=== PATIENT | male | born 1995 | race Caucasian/White ===

== ENCOUNTER 2018-06-27 16:32 | Emergency (ER) | payer MEDICAID ==
[~2018-06-27] VITALS: Ht 177.8 cm; Wt 109.3 kg
[2018-06-27 16:40] VITALS: BP 124/76
--- NOTE | 2018-06-27 16:57 | NUR ---
C/O BILATERAL 1ST TOE PAIN,REDNESS AND SWELLING X 2 DAYS. NONTRAUMATIC. ALSO C/O LEFT EAR RINGING. 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 DENIES N/V/D; SKIN IS PINK/WARM/DRY; AAOX4 WITH EVEN AND STEADY GAIT; LUNGS CLEAR BL; HR EVEN AND REGULAR; PT DENIES ANY FEVER, CP, SOB, OR COUGH AT THIS TIME; PATIENT STATES PAIN OF 10/10 AT THIS TIME; VSS; PATIENT POSITIONED FOR COMFORT; HOB ELEVATED; BEDRAILS UP X2; BED DOWN. ER MD MADE AWARE OF PT STATUS.FAMILY AT BEDSIDE.
--- NOTE | 2018-06-27 17:22 | NUR ---
Dr. Fuentes evaluating patient at bedside.
[2018-06-27 17:55] VITALS: BP 124/76
== END 2018-06-27 17:55 | disposition home or self-care (01) ==
LOC: MED 16:32
DX: L03.032 Cellulitis of left toe (principal); H66.92 Otitis media, unspecified, left ear; Z88.0 Allergy status to penicillin; Z88.1 Allergy status to other antibiotic agents; Z88.8 Allergy status to other drugs, medicaments and biological substances
CPT/HCPCS: 99283

== ENCOUNTER 2018-07-02 22:22 | Emergency (ER) | payer MEDICAID ==
[~2018-07-02] VITALS: Ht 177.8 cm; Wt 109.8 kg
[2018-07-02 22:32] VITALS: BP 133/78
--- NOTE | 2018-07-02 22:34 | NUR ---
TO LOBBY A/W BED, WITH MOTHER,VIA W/C
--- NOTE | 2018-07-03 00:20 | NUR ---
PT TAKEN TO BED 04 BY WHEELCHAIR.
--- NOTE | 2018-07-03 00:33 | NUR ---
Dr. Grimes evaluating patient at bedside.
--- NOTE | 2018-07-03 00:40 | NUR ---
23 YO M BIB MOM PRESENTS TO THE ED C/O VOMITING, KNAPP, AND CONSTIPATION X 3 DAYS. ACCORDING TO MOM, PT WAS SEEN MULTIPLE TIMES AT [facility] AND [facility] FOR SIMILAR ISSUES. MOM IS A POOR HISTORIAN. SHE STATES THAT HIS AMMONIA LEVELS WERE HIGH AND HE WAS PRESRIBED LACTULOSE BUT HE HAS NOT HAD A BOWEL MOVEMENT X 2 DAYS. SHE ALSO REPORTS HE HAS A HX OF TBI- 1995. PT IS ABLE TO PROVIDE SOME INFORMATION. PT STATES HE HAS HAD A SHARP 10/10 KNAPP X 3 DAYS ACCOMPANIED BY N/V. -- PT ALERT, CALM, COOPERATIVE. SKIN PINK, DRY, INTACT. BREATHING EVEN, UNLABORED. RIGHT EYE PERRLA. PT IS BLIND IN LEFT EYE. CRANIAL DEFORMITY NOTED TO LEFT SIDE. PMH-- TBI, SEIZURES, LIVER ISSUES PT POSITIONED FOR COMFORT. HOB ELEVATED. SIDE RAIL UP X2. BED IN LOWEST POSITION. MOM AT BEDSIDE. VSS. NO APPARENT DISTRESS AT THIS TIME.
[2018-07-03 01:11] LABS: BASOPHILS % (AUTO) 0.1 % (0.0-2.0); EOSINOPHILS # (AUTO) 0.1 K/uL (0-0.4); EOSINOPHILS % (AUTO) 1.3 % (0.0-4.0); HEMATOCRIT 36.8 % (36-52); HEMOGLOBIN 12.4 g/dL (12.0-18.0); LYMPHOCYTES # (AUTO) 1.6 K/uL (2.0-11.5); LYMPHOCYTES % (AUTO) 26.4 % (20.5-51.1); MEAN CORPUSCULAR HEMOGLOBIN 27 pg (27-31); MEAN CORPUSCULAR HGB CONC 34 g/dL (33-37); MONOCYTES # (AUTO) 0.3 K/uL (0.8-1.0); NEUTROPHILS % (AUTO) 67.2 % (42.2-75.2); PLATELET COUNT (AUTO) 210 K/uL (140-450); RED BLOOD CELL COUNT(AUTO) 4.54 MIL/uL (4.20-6.10); RED CELL DISTRIBUTION WIDTH 14.3 % (11.6-13.7)
[2018-07-03 01:19] LABS: ANION GAP 13.1 (8-16); CARBON DIOXIDE 25.9 mmol/L (21-32); CREATININE 0.8 mg/dL (0.7-1.3)
[2018-07-03 01:25] LABS: TOTAL BILIRUBIN 0.3 mg/dL (0.0-1.0)
[2018-07-03 01:28] LABS: PROTHROMBIN TIME 10.7 secs (10.8-13.4)
[2018-07-03 02:05] VITALS: BP 123/76
== END 2018-07-03 02:05 | disposition home or self-care (01) ==
LOC: MED 22:22
DX: K59.00 Constipation, unspecified (principal); R51 Headache; R11.10 Vomiting, unspecified; R79.1 Abnormal coagulation profile; Z87.820 Personal history of traumatic brain injury; Z88.0 Allergy status to penicillin; Z88.1 Allergy status to other antibiotic agents; Z88.8 Allergy status to other drugs, medicaments and biological substances
CPT/HCPCS: 36415; 80053; 82140; 85025; 85610; 85730; 99283

== ENCOUNTER 2018-07-14 18:27 | Emergency (ER) | payer MEDICAID, OTHER ==
[~2018-07-14] VITALS: Ht 177.8 cm; Wt 110.2 kg
[2018-07-14 18:42] VITALS: BP 139/72
--- NOTE | 2018-07-14 18:47 | NUR ---
TRIAGED TO LOBBYUCHE
--- NOTE | 2018-07-14 19:48 | NUR ---
TO ED 09 WITH STEADY GAIT
--- NOTE | 2018-07-14 19:53 | NUR ---
23/M BIB FAMILY, C/O 10/18 R LATERAL FA PAIN, X2 DAYS. PT STATED THAT HE HAD A SEIZURE 6 WEEKS AGO, FELL ON FACE AND R ARM TO CEMENT, HAD A R FA FX. PT UNABLE TO MOVE FINGERS DISTALLY DUE TO PREVIOUS CVA WITH R SIDED WEAKNESS, ABLE TO FLEX/EXTEND AND ABDUCT/ADDUCT ARMS, CAP REFILL<3S. PT AOX4, SKIN NORMAL WARM AND DRY, RR EVEN AND UNLABORED. HX SEIZURE, CVA (2017), BRAIN INJURY
[2018-07-14] MEDS ORDERED: IBUPROFEN 600 MG TAB PO ONE (20:25)
--- NOTE | 2018-07-14 20:50 | NUR ---
SUGAR TONG WAS APPLIED TO PT RIGHT ARM
--- NOTE | 2018-07-14 20:55 | NUR ---
SLING WAS APPLIED TO PTS RIGHT SHOULDER
[2018-07-14 21:00] VITALS: BP 135/78
== END 2018-07-14 21:00 | disposition home or self-care (01) ==
LOC: MED 18:27
DX: S62.101A Fracture of unspecified carpal bone, right wrist, initial encounter for closed fracture (principal); R56.9 Unspecified convulsions; Z86.73 Personal history of transient ischemic attack (TIA), and cerebral infarction without residual deficits; Z88.0 Allergy status to penicillin; Z88.1 Allergy status to other antibiotic agents; Z88.8 Allergy status to other drugs, medicaments and biological substances; W18.39XA Other fall on same level, initial encounter; Y93.89 Activity, other specified; Y92.89 Other specified places as the place of occurrence of the external cause; Y99.8 Other external cause status
CPT/HCPCS: 73110; 99283

== ENCOUNTER 2019-01-16 13:24 | Emergency (ER) | payer OTHER ==
[~2019-01-16] VITALS: Ht 175.3 cm; Wt 111.1 kg
[2019-01-16 13:40] VITALS: BP 140/67
--- NOTE | 2019-01-16 13:45 | NUR ---
PT TO DINO CASEY WITH MOTHER. PTS VS WNL
--- NOTE | 2019-01-16 16:00 | NUR ---
1ST CALL FOR PT IN ER LOBBY. NO ANSWER
--- NOTE | 2019-01-16 16:12 | NUR ---
PATIENT LEFT WITHOUT BEING SEEN BY DR. SILVERIO. NO FURTHER CARE PROVIDED FOR PATIENT.
== END 2019-01-16 16:12 | disposition left against medical advice (07) ==
LOC: MED 13:24
DX: R07.0 Pain in throat (principal); Z88.0 Allergy status to penicillin; Z88.8 Allergy status to other drugs, medicaments and biological substances; Z53.21 Procedure and treatment not carried out due to patient leaving prior to being seen by health care provider
CPT/HCPCS: 99283

== ENCOUNTER 2019-01-17 16:21 | Emergency (ER) | payer OTHER ==
[~2019-01-17] VITALS: Ht 175.3 cm; Wt 112.0 kg
[2019-01-17 16:25] VITALS: BP 136/72
--- NOTE | 2019-01-17 16:36 | NUR ---
ASSISTED PT TO WAIT IN THE LOBBY.
--- NOTE | 2019-01-17 17:56 | NUR ---
PATIENT LEFT WITHOUT BEING SEEN BY DR. HERNANDEZ. NO FURTHER CARE PROVIDED FOR PATIENT.
== END 2019-01-17 17:57 | disposition left against medical advice (07) ==
LOC: MED 16:21
DX: R21 Rash and other nonspecific skin eruption (principal); T40.7X5A Adverse effect of cannabis (derivatives), initial encounter; Z53.21 Procedure and treatment not carried out due to patient leaving prior to being seen by health care provider; R19.7 Diarrhea, unspecified; F41.9 Anxiety disorder, unspecified

== ENCOUNTER 2019-01-17 19:18 | Emergency (ER) | payer OTHER ==
[~2019-01-17] VITALS: Ht 175.3 cm; Wt 108.9 kg
[2019-01-17 19:22] VITALS: BP 137/76
--- NOTE | 2019-01-17 19:25 | NUR ---
TO LOBBY A/W BED AMBULATORY
--- NOTE | 2019-01-17 19:48 | NUR ---
23 Y/O MALE BIB MOTHER C/O ITCHINESS, REDNESS ON HIS FACE, BLOOD SHOT ON HIS EYES, RT, DURE TO REACTIONS TO HIS MEDICATION EPIDIOLEX. PER MOTHER, PT. WAS GIVEN BENADRYL WITH NO RELIEF. REDNESS NOTED ALL THROUGHOUT FACE, ARMS, AND LEGS. MOTHER STATES THAT LAMOTRIGINE "MAKES THE PATIENT HAVE THE ALLERGIC REACTION, AND I THINK THE EPIDIOLEX HELPS HIM MORE". ERMD MADE AWARE OF STATUS. SEIZURE PRECAUTIONS IMPLEMENTED. PLACED ON MONITOR. WILL CONTINUE TO MONITOR. HX: TBI, LEFT EYE BLIND; SHAKEN BABY SYNDROME RX: APIPRAZOLE; OLANZAPINE; IBUPROFEN; GABAPENTIN; Oxcarbazepine; MAGNESIUM OXIDE; CALCIUM; ODANSETRON; LAMOTRIGINE
--- NOTE | 2019-01-17 19:48 | NUR ---
PT AMBULATED TO BED 7 WITH FAMILY MEMBER
--- NOTE | 2019-01-17 20:04 | NUR ---
SEIZURE PADS PLACED ON PT BED
[2019-01-17] MEDS ORDERED: methylPREDNISolone SS 125 MG in WATER STERILE 2 ML IM ONE (20:40)
[2019-01-17] MEDS ORDERED: diphenhydrAMINE 50 MG/ML VIAL IM ONE (20:40)
[2019-01-17] MEDS ORDERED: methylPREDNISolone SS 125 MG/2 ML VIAL ONE (20:44)
[2019-01-17 21:53] VITALS: BP 137/76
--- NOTE | 2019-01-17 21:53 | NUR ---
Patient discharged with v/s stable. Written and verbal after care instructions given and explained. Patient alert, oriented and verbalized understanding of instructions. Ambulatory with steady gait. All questions addressed prior to discharge. ID band removed. Patient advised to follow up with PMD. Rx of MICHELLE given. Patient educated on indication of medication including possible reaction and side effects. Opportunity to ask questions provided and answered. DISCHARGED BY DR. BUCK.
== END 2019-01-17 21:53 | disposition home or self-care (01) ==
LOC: MED 19:18
DX: R21 Rash and other nonspecific skin eruption (principal); L53.9 Erythematous condition, unspecified; Z86.73 Personal history of transient ischemic attack (TIA), and cerebral infarction without residual deficits; Z86.69 Personal history of other diseases of the nervous system and sense organs; Z98.890 Other specified postprocedural states; Z88.0 Allergy status to penicillin; Z88.8 Allergy status to other drugs, medicaments and biological substances
CPT/HCPCS: 96372; 99283; J1200; J2930

== ENCOUNTER 2019-01-18 17:20 | Emergency (ER) | payer OTHER ==
[~2019-01-18] VITALS: Ht 175.3 cm; Wt 111.6 kg
[2019-01-18 17:26] VITALS: BP 147/73
--- NOTE | 2019-01-18 17:35 | NUR ---
PT TAKEN TO ER BED 08
--- NOTE | 2019-01-18 17:56 | NUR ---
23/M BIB GRANDMOTHER WITH C/O HAVING ALLERGY REACTIONS TO LAMOTRIGINE X 4 DAYS AGO WITH SX OF EDEMA ON FACE, BODY RASH TO ARMS, BACK, AND EARS THAT IS ITHCY. PT ALSO REPORTS CHANGE IN APPETITE AND WATERY DIARRHEA. PT DENIES N/V, AND FEVER AT THIS TIME. PT ALSO REPORTS SHARP THROAT PAIN 9/10, ERYTHEMA W/O EDEMA NOTICED ON PT'S PHARYNX. PTS GRANDMOTHER REPORTS PT WAS USING CBD OIL FOR 2 WEEKS BUT STOPPED 1.5 DAYS AGO. PT POSITIONED FOR COMFORT, BED IN LOWEST POSITON, SEIZURE PADS IN PLACE. ER MD MADE AWARE OF PT STATUS. ALLERGY: TOMPMAX, KEPRA, DEPAKOTE, AND PENICILLIN PMH: TBI, BRAIN INJURY, SHAKEN BABY SYDROME, BLIND IN L EYE, R SIDED WEAKNESS MEDS: SEE LIST
[2019-01-18] MEDS ORDERED: methylPREDNISolone SS 125 MG/2 ML VIAL IM ONE (18:20)
[2019-01-18] MEDS ORDERED: diphenhydrAMINE 50 MG CAP PO ONE (18:25)
--- NOTE | 2019-01-18 18:52 | NUR ---
Patient discharged with v/s stable. Written and verbal after care instructions given and explained. Patient alert, oriented and verbalized understanding of instructions. Ambulatory with steady gait. All questions addressed prior to discharge. ID band removed. Patient advised to follow up with PMD. Rx of BENADRYL AND PREDNISONE given. Patient educated on indication of medication including possible reaction and side effects. Opportunity to ask questions provided and answered.
[2019-01-18 18:53] VITALS: BP 147/73
== END 2019-01-18 18:52 | disposition home or self-care (01) ==
LOC: MED 17:20
DX: R21 Rash and other nonspecific skin eruption (principal); H11.31 Conjunctival hemorrhage, right eye; Z86.73 Personal history of transient ischemic attack (TIA), and cerebral infarction without residual deficits; Z98.890 Other specified postprocedural states; Z88.0 Allergy status to penicillin; Z88.8 Allergy status to other drugs, medicaments and biological substances
CPT/HCPCS: 96372; 99283; J2930; Q0163

== ENCOUNTER 2021-07-12 21:02 | Emergency (ER) | payer OTHER ==
[~2021-07-12] VITALS: Ht 152.4 cm; Wt 113.4 kg
[2021-07-12 22:03] VITALS: BP 135/77
--- NOTE | 2021-07-12 23:49 | NUR ---
PT TAKEN TO BED 11
--- NOTE | 2021-07-13 | NUR ---
DINO LGAUNA AT BEDSIDE INTERVIEWING PT.
--- NOTE | 2021-07-13 00:02 | NUR ---
Dr. Tabares at bedside to exam patient.
[2021-07-13] MEDS ORDERED: KETOROLAC 60 MG/2 ML VIAL IM ONE (00:10)
[2021-07-13] MEDS ORDERED: IBUP-2213 PO (00:19)
--- NOTE | 2021-07-13 00:20 | NUR ---
26 y/o male bib famil, c/o left heel pain. PT WAS WALKING AT AN AUDITORIUM AND WHEN HE WENT TO SIT DOWN THE CHAIR WAS NOT BOLTED TO THE FLOOR AND IT FELL ON HIS HEEL. BLEEDING CONTROLLED. PT IS ABLE TO AMBULATE WITH ASSISTANCE (NORMAL FOR PATIENT DUE TO HX). UNLABORED BREATHING. HX: TBI, SZR, RIGHT HAND CONTRACTURE
[2021-07-13 00:24] VITALS: BP 135/77
--- NOTE | 2021-07-13 00:24 | NUR ---
Patient discharged with v/s stable. Written and verbal after care instructions given and explained. Patient alert, oriented and verbalized understanding of instructions. Wheel Chair Assisted with to car. All questions addressed prior to discharge. ID band removed. Patient advised to follow up with PMD. Rx of Ibuprofen given. Patient educated on indication of medication including possible reaction and side effects. Opportunity to ask questions provided and answered. VSS, A/OX4, UNLABORED BREATHING, AND CALM DEMEANOR.
== END 2021-07-13 00:24 | disposition home or self-care (01) ==
LOC: MED 21:02
DX: S60.222A Contusion of left hand, initial encounter (principal); S90.812A Abrasion, left foot, initial encounter; M25.572 Pain in left ankle and joints of left foot; Z86.73 Personal history of transient ischemic attack (TIA), and cerebral infarction without residual deficits; Z86.69 Personal history of other diseases of the nervous system and sense organs; Z98.890 Other specified postprocedural states; Z88.0 Allergy status to penicillin; Z88.8 Allergy status to other drugs, medicaments and biological substances; W20.8XXA Other cause of strike by thrown, projected or falling object, initial encounter; Y93.89 Activity, other specified; Y92.89 Other specified places as the place of occurrence of the external cause; Y99.8 Other external cause status
CPT/HCPCS: 73130; 73610; 96372; 99284; J1885

== ENCOUNTER 2021-07-23 21:25 | Emergency (ER) | payer OTHER ==
[~2021-07-23] VITALS: Ht 172.7 cm; Wt 99.8 kg
[~2021-07-23 21:25] MED LIST: IBUP-2213 PO
--- NOTE | 2021-07-23 22:26 | NUR ---
PT SEEN BY MD IN TRIAGE
[2021-07-23] MEDS ORDERED: IBUPROFEN 800 MG TAB PO ONE (23:30)
--- NOTE | 2021-07-23 23:49 | NUR ---
PT TAKEN TO [facility]
--- NOTE | 2021-07-23 23:52 | NUR ---
ATTEMPTED TO FIND PT TO ADMINISTER MEDS. UNABLE TO LOCATE PT.
--- NOTE | 2021-07-23 23:59 | NUR ---
PT RETURN FROM [facility]
[2021-07-24] MEDS ORDERED: IBUP-2218 PO (00:30)
[2021-07-24 01:01] VITALS: BP 128/76
--- NOTE | 2021-07-24 01:02 | NUR ---
26 Y/O MALE BIB FAMILY, C/O FELL IN SHOWER YESTERDAY. PAIN TO LOWER BACK/BUTTOCKS. A/OX4, GCS-15, UNLABORED BREATHING, AMBULATORY. HX: TBI, SZR
--- NOTE | 2021-07-24 01:03 | NUR ---
Patient discharged with v/s stable. Written and verbal after care instructions given and explained. Patient alert, oriented and verbalized understanding of instructions. Ambulatory with steady gait. All questions addressed prior to discharge. ID band removed. Patient advised to follow up with PMD. Rx of IBUPROFEN given. Patient educated on indication of medication including possible reaction and side effects. Opportunity to ask questions provided and answered. A/OX4, VSS, UNLABORED BREATHING, AMBULATORY, AND CALM DEMENAOR
[2021-08-01] MEDS ORDERED: ZONI100C22 PO (22:02)
== END 2021-07-24 01:04 | disposition home or self-care (01) ==
LOC: MED 21:25
DX: M54.50 Low back pain, unspecified (principal); Z86.73 Personal history of transient ischemic attack (TIA), and cerebral infarction without residual deficits; Z88.0 Allergy status to penicillin; Z88.8 Allergy status to other drugs, medicaments and biological substances
CPT/HCPCS: 72110; 99283

== ENCOUNTER 2021-08-01 21:49 | Emergency (ER) | payer OTHER ==
[~2021-08-01] VITALS: Ht 180.3 cm; Wt 123.2 kg
[~2021-08-01 21:49] MED LIST changes: +IBUP-2218 PO
[2021-08-01 21:55] VITALS: BP 122/75
[2021-08-01] MEDS ORDERED: SODI100076 PO (22:02)
[2021-08-01] MEDS ORDERED: ZONI100C97 PO (22:02)
--- NOTE | 2021-08-01 22:03 | NUR ---
Patient ambulated to bed 4 with his family.
--- NOTE | 2021-08-01 22:04 | NUR ---
Dr. Freed examining patient.
[2021-08-01] MEDS ORDERED: KETOROLAC 30 MG/ML VIAL IVP ONE (22:10)
[2021-08-01] MEDS ORDERED: NACL 0.9% 1,000 ML IV ONE (22:10)
--- NOTE | 2021-08-01 22:30 | NUR ---
TABULATING CLERK AT BEDSIDE
[2021-08-01] MEDS ORDERED: cefTRIAXone 1,000 MG VIAL ONE (22:31)
[2021-08-01 22:55] LABS: BASOPHILS # (AUTO) 0.3 K/uL (0.00-0.22); BASOPHILS % (AUTO) 3.8 % (0.0-2.0); EOSINOPHILS # (AUTO) 0.3 K/uL (0-0.4); EOSINOPHILS % (AUTO) 4.2 % (0.0-4.0); HEMATOCRIT 37.6 % (36-52); HEMOGLOBIN 12.4 g/dL (12.0-18.0); LYMPHOCYTES # (AUTO) 1.7 K/uL (2.0-11.5); LYMPHOCYTES % (AUTO) 21.6 % (20.5-51.1); MEAN CORPUSCULAR HEMOGLOBIN 27 pg (27-31); MEAN CORPUSCULAR HGB CONC 33 g/dL (33-37); MEAN CORPUSCULAR VOLUME 81.3 fL (80-94); MONOCYTES # (AUTO) 0.3 K/uL (0.8-1.0); MONOCYTES % (AUTO) 4.2 % (1.7-9.3); NEUTROPHILS # (AUTO) 5.3 K/uL (1.8-7.7); NEUTROPHILS % (AUTO) 66.2 % (42.2-75.2); PLATELET COUNT (AUTO) 214 K/uL (140-450); RED BLOOD CELL COUNT(AUTO) 4.63 MIL/uL (4.20-6.10); RED CELL DISTRIBUTION WIDTH 14.1 % (11.6-13.7); WHITE BLOOD COUNT (AUTO) 7.9 K/uL (4.8-10.8)
[2021-08-01 23:03] LABS: APPEARANCE,URINE CLEAR (CLEAR); BILIRUBIN,URINE NEGATIVE (NEGATIVE); BLOOD, URINE NEGATIVE (NEGATIVE); COLOR,URINE YELLOW (YELLOW); LEUKOCYTE ESTERASE ,URINE NEGATIVE (NEGATIVE); NITRITE, URINE NEGATIVE (NEGATIVE); UGLUCOSE NEGATIVE (NEGATIVE)
[2021-08-01 23:06] LABS: ALBUMIN 3.9 g/dL (3.4-5.0); ANION GAP 11.9 (8-16); CARBON DIOXIDE 26.5 mmol/L (21-32); POTASSIUM 3.4 mmol/L (3.5-5.1); TOTAL BILIRUBIN 0.2 mg/dL (0.0-1.0)
[2021-08-01] MEDS ORDERED: NITR100C7 PO (23:32)
[2021-08-01 23:41] VITALS: BP 124/72
--- NOTE | 2021-08-01 23:42 | NUR ---
Patient discharged with v/s stable. Written and verbal after care instructions given and explained. Patient alert, oriented and verbalized understanding of instructions. Ambulatory with steady gait. All questions addressed prior to discharge. ID band removed. Patient advised to follow up with PMD. Rx of MACROBID 100MG CAPSULE given. Patient educated on indication of medication including possible reaction and side effects. Opportunity to ask questions provided and answered. A/OX4, VSS, UNLABORED BREATHING, AMBULATORY, AND CALM DEMEANOR.
== END 2021-08-01 23:42 | disposition home or self-care (01) ==
LOC: MED 21:49
DX: R10.9 Unspecified abdominal pain (principal); R30.0 Dysuria; Z88.0 Allergy status to penicillin; Z88.1 Allergy status to other antibiotic agents; Z88.8 Allergy status to other drugs, medicaments and biological substances; Z79.899 Other long term (current) drug therapy; Z86.73 Personal history of transient ischemic attack (TIA), and cerebral infarction without residual deficits
CPT/HCPCS: 36415; 80053; 81003; 85025; 87040; 96365; 96375; 99284; J0696; J1885; J7030

== ENCOUNTER 2021-10-01 08:06 | Emergency (ER) | payer OTHER ==
[~2021-10-01] VITALS: Ht 177.8 cm; Wt 113.4 kg
[~2021-10-01 08:06] MED LIST changes: +NITR100C7 PO; +SODI100076 PO; +ZONI100C97 PO
[2021-10-01 08:10] VITALS: BP 127/68
--- NOTE | 2021-10-01 08:16 | NUR ---
PT W/C ASSISTED TO BED 6.
--- NOTE | 2021-10-01 08:45 | NUR ---
26YO MALE PT BIB GRANDMA C/O SHARP 09/17 R SHOULDER PAIN XTODAY. PT STATES SUDDEN ONSET OF PAIN UPON WAKING THIS MORNING. PT STATES LOSS OF SENSATION/ NUMBING FROM R MID UPPER ARM DOWN TO WRIST AND "TINGLING " IN HAND. PT UNABLE TO MOVE FINGERS AT BASELINE. DENIES RECENT PHYSICAL ACTIVITY OR INJURY. PT HAS HX OF STROKE AND GRANDMA BELIEVES PAIN CAN BE CAUSED BY CURRENT MEDICAL BED PT IS USING. MOM STATES BED IS "NON FITTING FOR HIM AND MATTRESS IS UNSUPPORTIVE OF HES WEIGHT". NO VISIBLE INJURY OR SWELLING. PT UNABLE TO LIFT ARM DUE TO PAIN. DENIES N/V/D OR CHEST PAIN. DENIES TAKING MEDICATION FOR PAIN.. PT AAOX4, NO VISIBLE DISTRESS, RESPIRATIONS EVEN AND UNLABORED. GRANDMA AT BEDSIDE HX: STROKES, SEIZURES.
--- NOTE | 2021-10-01 08:46 | NUR ---
PT TAKEN TO XRAY HARRY WHEELCHAIR
--- NOTE | 2021-10-01 09:00 | NUR ---
PT BROUGHT BACK FROM [facility] VIA WHEELCHAIR
--- NOTE | 2021-10-01 09:02 | NUR ---
Chart checked and completed. The patient's care was reviewed and supervised by Franchesca Quintero RN.
[2021-10-01] MEDS ORDERED: NAPR-54 PO (09:24)
--- NOTE | 2021-10-01 09:30 | NUR ---
Patient discharged with v/s stable. Written and verbal after care instructions FOR SHOULDER PAIN given and explained. Patient alert, oriented and verbalized understanding of instructions. Carried with to car. All questions addressed prior to discharge. ID band removed. Patient advised to follow up with PMD. Rx saúl MICHELLE given. Opportunity to ask questions provided and answered. Addendum: 10/01/21 at 1103 by BRAD PT DISCHARGED BY GORDY BUCK
== END 2021-10-01 09:33 | disposition home or self-care (01) ==
LOC: MED 08:06
DX: S43.401A Unspecified sprain of right shoulder joint, initial encounter (principal); Z88.0 Allergy status to penicillin; Z88.8 Allergy status to other drugs, medicaments and biological substances; Z86.73 Personal history of transient ischemic attack (TIA), and cerebral infarction without residual deficits; W18.30XA Fall on same level, unspecified, initial encounter; Y93.89 Activity, other specified; Y92.89 Other specified places as the place of occurrence of the external cause; Y99.8 Other external cause status
CPT/HCPCS: 73030; 99283

== ENCOUNTER 2021-10-24 11:44 | Emergency (ER) | payer OTHER ==
[~2021-10-24] VITALS: Ht 177.8 cm; Wt 117.9 kg
[~2021-10-24 11:44] MED LIST changes: +NAPR-54 PO
[2021-10-24 12:09] VITALS: BP 125/73
--- NOTE | 2021-10-24 12:22 | NUR ---
PT WC ASSISTED TO BED 11
[2021-10-24] MEDS ORDERED: NACL 0.9% 1,000 ML IV ONE (13:20)
[2021-10-24 13:54] LABS: BASOPHILS % (AUTO) 0.4 % (0.0-2.0); EOSINOPHILS # (AUTO) 0.2 K/uL (0-0.4); EOSINOPHILS % (AUTO) 3.3 % (0.0-4.0); HEMATOCRIT 41.6 % (36-52); HEMOGLOBIN 13.5 g/dL (12.0-18.0); LYMPHOCYTES # (AUTO) 1.7 K/uL (2.0-11.5); LYMPHOCYTES % (AUTO) 27.7 % (20.5-51.1); MEAN CORPUSCULAR HEMOGLOBIN 27 pg (27-31); MEAN CORPUSCULAR HGB CONC 33 g/dL (33-37); MEAN CORPUSCULAR VOLUME 82.5 fL (80-94); MONOCYTES # (AUTO) 0.4 K/uL (0.8-1.0); MONOCYTES % (AUTO) 6.3 % (1.7-9.3); NEUTROPHILS # (AUTO) 3.7 K/uL (1.8-7.7); NEUTROPHILS % (AUTO) 62.3 % (42.2-75.2); PLATELET COUNT (AUTO) 226 K/uL (140-450); RED BLOOD CELL COUNT(AUTO) 5.04 MIL/uL (4.20-6.10); RED CELL DISTRIBUTION WIDTH 15.7 % (11.6-13.7)
[2021-10-24 14:23] LABS: ALBUMIN 4.3 g/dL (3.4-5.0); ANION GAP 11.6 (8-16); CARBON DIOXIDE 27.6 mmol/L (21-32); CREATININE 1.1 mg/dL (0.6-1.3); POTASSIUM 4.2 mmol/L (3.5-5.1); TOTAL BILIRUBIN 0.3 mg/dL (0.0-1.0)
[2021-10-24] MEDS ORDERED: MIDAZOLAM 5 MG/5 ML VIAL IV ONE (15:00)
[2021-10-24 15:26] LABS: APPEARANCE,URINE CLEAR (CLEAR); BILIRUBIN,URINE NEGATIVE (NEGATIVE); BLOOD, URINE NEGATIVE (NEGATIVE); COLOR,URINE YELLOW (YELLOW); LEUKOCYTE ESTERASE ,URINE NEGATIVE (NEGATIVE); NITRITE, URINE NEGATIVE (NEGATIVE); UGLUCOSE NEGATIVE (NEGATIVE)
[2021-10-24] MEDS ORDERED: MIDAZOLAM 5 MG/5 ML VIAL ONE (16:31)
--- NOTE | 2021-10-24 16:45 | NUR ---
26/M BIB GRANDMOTHER WITH C/O DIZZINESS X1 DAY AND RECENT DIFFICULTY SLEEPING X2 DAYS. PATIENT HAS HISTORY OF STROKE AND SEIZURES, GRANDMA STATING HE HAS HAD AN INCREASE IN SEIZURES, LAST ONE BEING YESTERDAY. GRANDMA STATING PATIENT IS CURRENTLY SEEING A SPECIALIST. PER GRANDMA NO RECENT FEVERS, COUGH, CHILLS OR SICK CONTACTS.
--- NOTE | 2021-10-24 17:35 | NUR ---
IV removed, catheter intact and site benign. Applied folded 4x4 gauze and tape to stop bleeding.
[2021-10-24 17:37] VITALS: BP 131/75
--- NOTE | 2021-10-24 17:38 | NUR ---
Patient discharged with v/s stable. Written and verbal after care instructions ABOUT INSOMNIA AND VERTIGO given and explained. Patient verbalized understanding. Ambulatory with steady gait. All questions addressed prior to discharge. Advised to follow up with PMD.
== END 2021-10-24 17:38 | disposition home or self-care (01) ==
LOC: MED 11:44
DX: G40.89 Other seizures (principal); Z86.73 Personal history of transient ischemic attack (TIA), and cerebral infarction without residual deficits
CPT/HCPCS: 36415; 70450; 80053; 81003; 85025; 96361; 96374; 99284; J2250; J7030

== ENCOUNTER 2022-01-12 23:35 | Emergency (ER) | payer OTHER ==
[~2022-01-12] VITALS: Ht 172.7 cm; Wt 102.1 kg
[2022-01-12 23:42] VITALS: BP 128/74
[2022-01-12] MEDS ORDERED: LORazepam 2 MG/ML VIAL IVP ONE (23:45)
--- NOTE | 2022-01-12 23:45 | NUR ---
PT IS AWAKE, WITHDRAWAL TO PAIN. PT HAS TWITCHING TO LIP AND RT LEG. ERMD AT BEDSIDE.
--- NOTE | 2022-01-12 23:50 | NUR ---
2105 PT TAKEN TO BED VIA W/C
[2022-01-13 00:06] LABS: BASOPHILS % (AUTO) 0.5 % (0.0-2.0); EOSINOPHILS # (AUTO) 0.4 K/uL (0-0.4); EOSINOPHILS % (AUTO) 5.1 % (0.0-4.0); HEMATOCRIT 41.3 % (36-52); HEMOGLOBIN 13.6 g/dL (12.0-18.0); LYMPHOCYTES # (AUTO) 3.1 K/uL (2.0-11.5); LYMPHOCYTES % (AUTO) 37.5 % (20.5-51.1); MEAN CORPUSCULAR HEMOGLOBIN 27 pg (27-31); MEAN CORPUSCULAR HGB CONC 33 g/dL (33-37); MEAN CORPUSCULAR VOLUME 82.3 fL (80-94); MONOCYTES # (AUTO) 0.5 K/uL (0.8-1.0); NEUTROPHILS # (AUTO) 4.2 K/uL (1.8-7.7); NEUTROPHILS % (AUTO) 50.9 % (42.2-75.2); PLATELET COUNT (AUTO) 177 K/uL (140-450); RED BLOOD CELL COUNT(AUTO) 5.02 MIL/uL (4.20-6.10); WHITE BLOOD COUNT (AUTO) 8.2 K/uL (4.8-10.8)
--- NOTE | 2022-01-13 00:10 | NUR ---
DR. SOTELO AT BEDSIDE FOR EXAM
--- NOTE | 2022-01-13 00:20 | NUR ---
PT OPENING EYES. ABLE TO SEE TWITCH IN LEFT SIDE OF EYE AND NASAL/CHEEK AREA. ORDERS GIVEN AND WILL FOLLOW THROUGH
[2022-01-13 00:41] LABS: ALBUMIN 3.7 g/dL (3.4-5.0); CREATININE 1.2 mg/dL (0.6-1.3); TOTAL BILIRUBIN 0.1 mg/dL (0.0-1.0)
[2022-01-13 00:50] LABS: POTASSIUM 3.4 mmol/L (3.5-5.1)
[2022-01-13 00:51] LABS: ANION GAP 12.4 (8-16)
--- NOTE | 2022-01-13 02:10 | NUR ---
PT OPENING EYES AND TALKING AT THIS TIME. PT IS BACK TO BASELINE ACCORDING TO GRANDMOTHER.
[2022-01-13] MEDS ORDERED: ALUMINUM HYD/MAG/SIMETHICONE 30 ML UDC PO ONE (02:40)
[2022-01-13] MEDS ORDERED: PANTOPRAZOLE 40 MG INJ VIAL IVP ONE (02:40)
--- NOTE | 2022-01-13 03:00 | NUR ---
PT RESTING, NO S/S OF DISTRESS NOTED. GRANDMOTHER AT BEDSIDE.
[2022-01-13] MEDS ORDERED: MAA30 PO (03:06)
[2022-01-13] MEDS ORDERED: ONDA-188 PO (03:06)
[2022-01-13 03:25] VITALS: BP 132/68
--- NOTE | 2022-01-13 03:25 | NUR ---
Patient discharged with v/s stable. Written and verbal after care instructions given and explained. Patient verbalized understanding. Wheel Chair Assisted with by caregiver. All questions addressed prior to discharge. Advised to follow up with PMD.
== END 2022-01-13 03:25 | disposition home or self-care (01) ==
LOC: MED 23:35
DX: K21.9 Gastro-esophageal reflux disease without esophagitis (principal); Z86.73 Personal history of transient ischemic attack (TIA), and cerebral infarction without residual deficits
CPT/HCPCS: 36415; 70450; 80053; 83690; 85025; 96374; 96375; 99284; C9113; J2060

== ENCOUNTER 2022-01-26 21:44 | Emergency (ER) | payer OTHER ==
[~2022-01-26 21:44] MED LIST changes: +MAA30 PO; +ONDA-188 PO
--- NOTE | 2022-01-26 22:10 | NUR ---
pt left without being traiged per er aditting department at [id number]
--- NOTE | 2022-01-26 22:10 | NUR ---
PT LEFT PRIOR TO TRIAGE.
== END 2022-01-26 22:10 | disposition left against medical advice (07) ==
LOC: MED 21:44
DX: S09.90XA Unspecified injury of head, initial encounter (principal); Z53.21 Procedure and treatment not carried out due to patient leaving prior to being seen by health care provider; W19.XXXA Unspecified fall, initial encounter; Y93.89 Activity, other specified; Y92.89 Other specified places as the place of occurrence of the external cause; Y99.8 Other external cause status

== ENCOUNTER 2022-04-04 14:28 | Emergency (ER) | payer OTHER ==
[~2022-04-04] VITALS: Ht 177.8 cm; Wt 113.4 kg
[2022-04-04 14:33] VITALS: BP_SYST 117; BP_SYST 124; BP_DIAS 63; BP_DIAS 71; BP_DIAS 78
--- NOTE | 2022-04-04 16:23 | NUR ---
PATIENT LEFT WITHOUT BEING SEEN BY DR. DINH. NO FURTHER CARE PROVIDED FOR PATIENT.
== END 2022-04-04 16:23 | disposition left against medical advice (07) ==
LOC: MED 14:28
DX: M25.531 Pain in right wrist (principal); Z53.21 Procedure and treatment not carried out due to patient leaving prior to being seen by health care provider
CPT/HCPCS: 73130